=== PATIENT | female | born 1955 | race Caucasian/White ===

== ENCOUNTER 2022-10-09 17:17 | Observation (INO) ==
--- NOTE | 2022-10-09 17:22 | Emergency Department Note ---
Impression & Plan Syncope, Acute dehydration ED Provider Note NAME: MACIEJ RICE AGE: 67 SEX: F : 1955 ARRIVES VIA: Ambulance INFORMANT: Patient, ED PROVIDER(S): Marvel Cary MD CHIEF COMPLAINT: Syncope MEDICAL DECISION MAKING: Patient presents due to concern for syncope that occurred after the [employer] race. IV was established blood work was obtained the patient was ordered IV fluids. CK was also ordered. The patient's blood work showed a normal white count H&H and platelet count. The patient does have RASHARD with a creat of 169. I was able to review prior blood work which showed that her creatinine was less than 1. Patient's initial troponin is 19 given the patient's history of cardiomyopathy believe this warrants being repeated. Discussed that if it was uptrending would consider admission. The patient had received IV fluids and was given additional. Repeat troponin was 23. I did discuss this further with on-call yard supervisor Dr. Moreno. Patient currently asymptomatic. I did discuss the patient may be nefit for a repeat echo to ensure stability given her slightly below normal EF as reported by patient. Patient was admitted to the medicine service by Dr. Wong. Prior /Outside records reviewed: I did review an outside echo report which shows that the patient had slightly below normal ejection fraction at 43%. This was via her [facility] patient portal. Patient also had reported known history of left bundle branch block. Differential diagnosis: Vasovagal event, dehydration, infection, hypoglycemia, electrolyte abnormalities, cardiac sources, intracerebral event, pulmonary embolism, seizure, toxicologic, neurologic, as well as other pathologies. Diagnostics, as interpreted by me: ECG: Normal sinus rhythm, rate posterior COVID old VT, wide QRS, left bundle branch block pattern, trace elevation anteriorly and laterally without obvious Sgarbossa criteria. Cardiac monitoring: An order was placed for continuous cardiac monitoring. The monitor shows a rate of 77 with sinus rhythm. Patient was placed on pulse oximetry Medical decision rules: Sgarbossa criteria Imaging studies: See below I informally reviewed the patient's chest x-ray which shows no obvious pneumotho rax HPI: Patient presents due to concern for syncope that occurred just prior to arrival. The patient did receive 500 IV fluids and the patient is feeling better. The patient did feel lightheaded and dizzy prior to this occurrence. The patient had just completed the [employer]. Patient states that she does have a history of cardiomyopathy with an EF of 42%. Patient states she recently did have an echocardiogram completed at [facility] about 3 months prior. Patient denies any chest pains or shortness of breath. No nausea vomiting or diarrhea. The patient had felt chilled prior to coming in as she was running in the rain completing the race. Patient states that she passed out when she was seated the patient did not fall. PAST MEDICAL HISTORY: Cardiomyopathy HTN PAST SURGICAL HISTORY: No pertinent surgical history SOCIAL HISTORY: No tobacco or drug use, uses alcohol socially. Lives in [place]. HOME MEDICATIONS: See Below ALLERGIES: See Below VITALS: See Below PHYSICAL EXAMINATION: GENERAL: NAD, non-toxic. EYE EXAM: Normal conjunctiva. PERRL, no anisocoria and EOM's grossly intact w/o pain. NECK: Supple, no nuchal rigidity, no adenopathy, non-tender. No signs of meningismus. FROM of the neck with good chin to chest and neck extension. No stridor. LUNGS: Clear to auscultation. Normal chest wall mechanics. HEART: NSR, no MRG. ABDOMEN: Abdomen soft, non-tender, no masses, no rebound or guarding. BACK: No CVA TTP. SKIN: No rashes and no bruising. UPPER EXTREMITIES: Upper extremities are grossly normal. LOWER EXTREMITIES: Grossly normal, no edema. NEURO EXAM: A&O x3, cranial nerves II-XII grossly intact, normal speech, moves all 4 extremities. Past Med/Surg History Medical History Cardiomyopathy Surgical History No pertinent past surgical history Social History Smoking Status: Never smoker Do You Dip or Chew Tobacco: No; Tobacco Cessation Education Requested by Patient: No Hx Alcohol Use: Yes Hx Substance Use: No Preferred Language: Kinyarwanda Communication Ability: Effective Professional Nursing Tutor Required: No Beliefs That Will Affect Care: None Current Living Situation: Spouse Other Information That Helps Us Care for You: No Feels Safe at Home: Yes Assistive Devices: None Allergies Allergies Allergy/AdvReac Type Severity Reaction Status Date / Time No Known Allergies Allergy Unverified 10/09/22 19:01 Home Meds Home Medications Medication Instructions Recorded Confirmed losartan 50 mg tablet 50 mg PO DAILY 10/09/22 10/09/22 metoprolol succinate 25 mg 25 mg PO DAILY 10/09/22 10/09/22 tablet,extended release 24 hr spironolactone 25 mg tablet 25 mg PO DAILY 10/09/22 10/09/22 Results & Data (ED) Vital Signs Vital Signs - 24 hr 10/09/22 17:28 10/09/22 17:22 10/09/22 17:41 Temperature 36.5 C Temperature Source Oral Pulse Rate 87 75 75 Respiratory Rate 20 20 Blood Pressure 128/81 Blood Pressure Mean 96 Blood Pressure Position Lying Pulse Oximetry 99 99 Oxygen Delivery Method Room Air Room Air Sepsis Recent Fever Within 48 Hours No Sepsis New/Unexplained Change in Mental Status No Sepsis Action Taken by Nursing No Action Required Home Medications Current Medication List: was personally reviewed by me Laboratory Data Attestation: I reviewed the patient's lab results. 10/10/22 04:29 10/10/22 04:29 Lab Results 10/09/22 10/09/22 10/09/22 Range/Units 17:48 17:48 17:48 WBC 10.69 (4.8-10.8) K/ul RBC 4.70 (4.20-5.40) M/uL Hgb 13.9 (12.0-16.0) g/dl Hct 41.5 (37.0-47.0) % MCV 88.3 (80.0-100.0) fL MCH 29.6 (25.0-34.0) pg MCHC 33.5 (32.0-36.0) g/dL RDW Std Deviation 41.2 (36.4-46.3) fL RDW Coeff of Rui 12.8 (11.5-14.5) % Plt Count 295 (130-400) K/uL MPV 9.5 (9.4-12.4) fL Immature Gran % (Auto) 0.4 % Neut % (Auto) 81.9 % Lymph % (Auto) 11.3 % Dillon % (Auto) 5.5 % Eos % (Auto) 0.5 % Baso % (Auto) 0.4 % Neut # (Auto) 8.76 H (1.40-6.50) K/uL Lymph # (Auto) 1.21 (1.2-3.4) K/uL Dillon # (Auto) 0.59 (0.11-0.59) K/uL Eos # (Auto) 0.05 (0-0.50) K/uL Baso # (Auto) 0.04 (0-0.2) K/uL Immature Gran # (Auto) 0.04 (0.01-0.20) K/uL APTT (21.0-31.0) Seconds PTT Ratio Sodium 139 (136-145) mmol/L Potassium 5.2 H (3.5-5.1) mmol/L Chloride 106 (98-107) mmol/L Carbon Dioxide 23 (21-32) mmol/L Anion Gap 10 (3-11) BUN 26 H (6-23) mg/dl Creatinine 1.69 H (0.6-1.2) mg/dl Est Cr Clr Drug Dosing 26.8 ml/min Est GFR ( Amer) 35.8 ml/min Est GFR (Non-Af Amer) 30.9 ml/min BUN/Creatinine Ratio 15.4 (10-20) Glucose 104 H (70-99(Fasting)) mg/dl Calcium 10.1 (8.6-10.3) mg/dl Magnesium 2.0 (1.7-2.4) mg/dl Total Bilirubin 1.0 (0.2-1.0) mg/dl AST 24 (13-39) U/L ALT 22 (7-52) U/L Alkaline Phosphatase 82 (34-104) U/L Total Creatine Kinase 183 (26-192) U/L Troponin I High Sens 19.3 H (0-14) pg/ml Total Protein 7.0 (6.0-8.3) gm/dl Albumin 4.6 (3.4-5.0) gm/dl Globulin 2.4 L (2.5-4.0) gm/dl Albumin/Globulin Ratio 1.9 (0.9-2) TSH 1.976 (0.300-4.500) uIu/ml 10/09/22 10/09/22 Range/Units 17:48 19:29 WBC (4.8-10.8) K/ul RBC (4.20-5.40) M/uL Hgb (12.0-16.0) g/dl Hct (37.0-47.0) % MCV (80.0-100.0) fL MCH (25.0-34.0) pg MCHC (32.0-36.0) g/dL RDW Std Deviation (36.4-46.3) fL RDW Coeff of Rui (11.5-14.5) % Plt Count (130-400) K/uL MPV (9.4-12.4) fL Immature Gran % (Auto) % Neut % (Auto) % Lymph % (Auto) % Dillon % (Auto) % Eos % (Auto) % Baso % (Auto) % Neut # (Auto) (1.40-6.50) K/uL Lymph # (Auto) (1.2-3.4) K/uL Dillon # (Auto) (0.11-0.59) K/uL Eos # (Auto) (0-0.50) K/uL Baso # (Auto) (0-0.2) K/uL Immature Gran # (Auto) (0.01-0.20) K/uL APTT 20.5 L (21.0-31.0) Seconds PTT Ratio 0.7 Sodium (136-145) mmol/L Potassium (3.5-5.1) mmol/L Chloride (98-107) mmol/L Carbon Dioxide (21-32) mmol/L Anion Gap (3-11) BUN (6-23) mg/dl Creatinine (0.6-1.2) mg/dl Est Cr Clr Drug Dosing ml/min Est GFR ( Amer) ml/min Est GFR (Non-Af Amer) ml/min BUN/Creatinine Ratio (10-20) Glucose (70-99(Fasting)) mg/dl Calcium (8.6-10.3) mg/dl Magnesium (1.7-2.4) mg/dl Total Bilirubin (0.2-1.0) mg/dl AST (13-39) U/L ALT (7-52) U/L Alkaline Phosphatase (34-104) U/L Total Creatine Kinase 290 H (26-192) U/L Troponin I High Sens 23.7 H (0-14) pg/ml Total Protein (6.0-8.3) gm/dl Albumin (3.4-5.0) gm/dl Globulin (2.5-4.0) gm/dl Albumin/Globulin Ratio (0.9-2) TSH (0.300-4.500) uIu/ml Administered Medications Discontinued Medications Heparin Sodium (Porcine) (Heparin Sod 5,000 Unit/0.5 Ml Vial) 5,000 units SQ Q8 LYNSEY Stop: 11/09/22 00:53 Last Admin: 10/10/22 08:24 Dose: Not Given Documented By: Admin: 10/10/22 05:33 Dose: Not Given Documented By: Admin: 10/10/22 01:23 Dose: Not Given Documented By: GISSELL Sodium Chloride (Nss 1000ml) 1,000 mls @ 999 mls/hr IV .Q1H1M LYNSEY Stop: 10/09/22 18:45 Last Infusion: 10/09/22 19:04 Dose: 0 mls/hr Documented By: Admin: 10/09/22 17:54 Dose: 999 mls/hr Documented By: QGV Sodium Chloride (Nss 1000ml) 1,000 mls @ 999 mls/hr IV .Q1H1M ONE Stop: 10/09/22 19:33 Last Infusion: 10/09/22 21:37 Dose: 0 mls/hr Documented By: JULIO CESAR Admin: 10/09/22 19:03 Dose: 999 mls/hr Documented By: QGV Sodium Chloride (Nss 1000ml) 1,000 mls @ 60 mls/hr IV .[id number] STA Stop: 10/10/22 14:47 Last Infusion: 10/10/22 12:50 Dose: 0 mls/hr Documented By: Admin: 10/09/22 22:32 Dose: 60 mls/hr Documented By: JULIO CESAR Metoprolol Succinate (Metoprolol Succ 25mg Ext Rel Tab) 25 mg PO DAILY LYNSEY Stop: 11/09/22 08:59 Last Admin: 10/10/22 08:31 Dose: 25 mg Documented By: JAZIEL Imaging Data Radiologist's Impression: Chest X-Ray 10/09/22 20:45 SINGLE VIEW CHEST CLINICAL HISTORY: Renal failure. FINDINGS: An AP, portable, upright chest radiograph is obtained. No prior studies are available for comparison at the time of dictation. The heart is mildly enlarged. The pulmonary vasculature is noncongested. Chronic interstitial thickening is similar to previous. The lungs and pleural spaces are clear noting bibasilar scarring/atelectasis. No pneumothorax is seen. The skeletal structures are osteopenic. Bony thorax is grossly intact. IMPRESSION: No active disease in the chest. ACT 112: Negative or not required by law. Electronically signed by: Anselmo Dubon M.D. 10/09/2022 10:26 PM Discharge Plan Visit Data Chief Complaint: Syncope Stated Complaint: SYNCOPE, LETHARGIC ED Provider: Marvel Cary Discharge Problem: Syncope, Acute dehydration Patient Disposition: Admitted As Inpatient Discharge Instructions Interventions: ED Discharge Assessment Last Done: 10/10/22 00:48
[2022-10-09] MEDS ORDERED: SODIUM CHLORIDE 0.9% 1000ML 1,000 ML IV SCH (17:45)
[2022-10-09 18:08] LABS: Basophils # (auto) 0.04 K/uL (0-0.2); Basophils % (auto) 0.4 %; Eosinophils # (auto) 0.05 K/uL (0-0.50); Eosinophils % (auto) 0.5 %; Hematocrit (blood only) 41.5 % (37.0-47.0); Hemoglobin 13.9 g/dl (12.0-16.0); Immature Granulocytes # (auto) 0.04 K/uL (0.01-0.20); Immature Granulocytes % (auto) 0.4 %; Lymphocytes # (auto) 1.21 K/uL (1.2-3.4); Lymphocytes % (auto) 11.3 %; Mean Corpuscular Hemoglobin 29.6 pg (25.0-34.0); Mean Corpuscular Hgb Conc 33.5 g/dL (32.0-36.0); Mean Corpuscular Volume 88.3 fL (80.0-100.0); Mean Platelet Volume 9.5 fL (9.4-12.4); Monocytes # (auto) 0.59 K/uL (0.11-0.59); Monocytes % (auto) 5.5 %; Neutrophils # (auto) 8.76 K/uL (1.40-6.50); Neutrophils % (auto) 81.9 %; Platelet Count 295 K/uL (130-400); RDW Coefficient of Variation 12.8 % (11.5-14.5); RDW Standard Deviation 41.2 fL (36.4-46.3); White Blood Count 10.69 K/ul (4.8-10.8)
[2022-10-09 18:21] LABS: Albumin Globulin Ratio 1.9 (0.9-2); Albumin Level 4.6 gm/dl (3.4-5.0); BUN Creatinine Ratio 15.4 (10-20); Calcium 10.1 mg/dl (8.6-10.3); Creatinine Clr Calc Pharmacy 26.8 ml/min; Est GFR (African American) 35.8 ml/min; Est GFR (Non-African American) 30.9 ml/min; Globulin 2.4 gm/dl (2.5-4.0); Potassium 5.2 mmol/L (3.5-5.1)
[2022-10-09 18:28] LABS: Troponin I High Sensitivity 19.3 pg/ml (0-14)
[2022-10-09] MEDS ORDERED: SODIUM CHLORIDE 0.9% 1000ML 1,000 ML IV ONE (18:33)
[2022-10-09 20:01] LABS: Troponin I High Sensitivity 23.7 pg/ml (0-14)
[2022-10-09 21:15] LABS: Partial Thromboplastin Ratio 0.7; Partial Thromboplastin Time 20.5 Seconds (21.0-31.0)
--- NOTE | 2022-10-09 22:00 | History & Physical Report ---
Date of Service October 09, 2022 Assessment & Plan (1) Syncope: Plan: Likely secondary to orthostasis ARF, hyperkalemia, mild rhabdomyolysis from exertion, NSAID intake Rule out arrhythmia, valvular pathology Troponin elevation secondary to kidney dysfunction Patient without chest pain or SOB complaints. History of cardiomyopathy, patient on the dry side LBBB, possibly chronic OBS PCU given cardiac history Check orthostatic vitals, TTE Monitor creatinine, CPK response to IVF Appropriate to hold losartan and spironolactone given kidney dysfunction and hyperkalemia Renal ultrasound, Nephrology consult if without improvement Patient counseled regarding adverse effects of NSAIDs on kidney function. DVT prophylaxis. Heparin subcu Full code Patient requesting updates providers. Mr. Arsalan Israel, contact #[phone]. Text document was generated using Phone Warrior voice recognition software. It may contain grammatical or spelling errors. Kindly contact undersigned for clarification of any documentation item in question. History of Present Illness Chief Complaint: Syncope Primary Care Provider: Dr. Sebastian of [place], [place] History obtained from patient, family, and records. Medical history significant for cardiomyopathy possibly from COVID-19 illness as per patient (EF 40%, TTE 2022), hypertension. Patient is a resident of [place], [place] who is in town for the local [employer] triathlon. Patient felt lightheaded and dizzy after completing the race this afternoon. Patient sat down in a chair and passed out. Transient syncopal event witnessed by friends/family. Patient denies chest pain, SOB, headache, abdominal pain. No witnessed seizures, tongue biting, or incontinence. Aleve intake for aches. Patient brought to the ER for evaluation. Currently feels much better. 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 Allergies Allergy/AdvReac Type Severity Reaction Status Date / Time No Known Allergies Allergy Unverified 10/09/22 19:01 Home Medications Medication Instructions Recorded Confirmed Type losartan 50 mg tablet 50 mg PO DAILY 10/09/22 10/09/22 History metoprolol succinate 25 mg 25 mg PO DAILY 10/09/22 10/09/22 History tablet,extended release 24 hr spironolactone 25 mg tablet 25 mg PO DAILY 10/09/22 10/09/22 History Past Med/Surg History Social History Smoking Status: Never smoker Do You Dip or Chew Tobacco: No; Tobacco Cessation Education Requested by Patient: No Hx Alcohol Use: Yes Hx Substance Use: No Preferred Language: Bruneian Communication Ability: Effective Hot Dip Tinning Supervisor Required: No Beliefs That Will Affect Care: None Current Living Situation: Spouse Other Information That Helps Us Care for You: No Feels Safe at Home: Yes Review of Systems Review of Systems: As per HPI, all other systems reviewed and negative Physical Exam Physical Exam: GENERAL: Comfortable, pleasant, no respiratory distress SKIN: Normal color, warm HEENT: [place] palpebral conjunctivae, no ptosis, dry buccal mucosa NECK : Supple, no tenderness CHEST : CTA, no tenderness HEART : RRR, no obvious murmurs ABDOMEN: no distention, nontender EXTREMITIES : No LE swelling/tenderness, no other conspicuous deformities noted NEUROLOGIC : Coherent, no facial asymmetry, no other gross focality Results & Data Results & Data Vital Signs (Past 12 Hours) Vital Signs Temp Pulse Resp BP Pulse Ox O2 Del Method 10/09/22 19:50 85 26 H 96 Room Air 10/09/22 19:40 82 20 98 10/09/22 19:30 92 H 16 98 10/09/22 19:20 88 22 97 10/09/22 19:10 91 H 22 97 10/09/22 19:00 89 15 97 10/09/22 18:50 87 25 H 98 10/09/22 18:40 101 H 21 97 10/09/22 18:30 91 H 16 100 10/09/22 18:20 83 23 99 10/09/22 18:10 87 20 95 10/09/22 18:00 84 22 99 Room Air 10/09/22 17:50 80 18 98 10/09/22 17:40 90 17 97 10/09/22 17:30 75 20 99 10/09/22 17:27 79 18 99 10/09/22 17:19 99 Room Air 10/09/22 17:41 75 20 99 Room Air 10/09/22 17:22 36.5 C 75 20 128/81 99 Room Air 10/09/22 17:28 87 Laboratory Results Laboratory Results WBC 10.69 K/ul (4.8-10.8) 10/09/22 17:48 RBC 4.70 M/uL (4.20-5.40) 10/09/22 17:48 Hgb 13.9 g/dl (12.0-16.0) 10/09/22 17:48 Hct 41.5 % (37.0-47.0) 10/09/22 17:48 MCV 88.3 fL (80.0-100.0) 10/09/22 17:48 MCH 29.6 pg (25.0-34.0) 10/09/22 17:48 MCHC 33.5 g/dL (32.0-36.0) 10/09/22 17:48 RDW Std Deviation 41.2 fL (36.4-46.3) 10/09/22 17:48 RDW Coeff of Rui 12.8 % (11.5-14.5) 10/09/22 17:48 Plt Count 295 K/uL (130-400) 10/09/22 17:48 MPV 9.5 fL (9.4-12.4) 10/09/22 17:48 Immature Gran % (Auto) 0.4 % 10/09/22 17:48 Neut % (Auto) 81.9 % 10/09/22 17:48 Lymph % (Auto) 11.3 % 10/09/22 17:48 Wolfe % (Auto) 5.5 % 10/09/22 17:48 Eos % (Auto) 0.5 % 10/09/22 17:48 Baso % (Auto) 0.4 % 10/09/22 17:48 Neut # (Auto) 8.76 K/uL (1.40-6.50) H 10/09/22 17:48 Lymph # (Auto) 1.21 K/uL (1.2-3.4) 10/09/22 17:48 Wolfe # (Auto) 0.59 K/uL (0.11-0.59) 10/09/22 17:48 Eos # (Auto) 0.05 K/uL (0-0.50) 10/09/22 17:48 Baso # (Auto) 0.04 K/uL (0-0.2) 10/09/22 17:48 Immature Gran # (Auto) 0.04 K/uL (0.01-0.20) 10/09/22 17:48 APTT 20.5 Seconds (21.0-31.0) L 10/09/22 17:48 PTT Ratio 0.7 10/09/22 17:48 Sodium 139 mmol/L (136-145) 10/09/22 17:48 Potassium 5.2 mmol/L (3.5-5.1) H 10/09/22 17:48 Chloride 106 mmol/L (98-107) 10/09/22 17:48 Carbon Dioxide 23 mmol/L (21-32) 10/09/22 17:48 Anion Gap 10 (3-11) 10/09/22 17:48 BUN 26 mg/dl (6-23) H 10/09/22 17:48 Creatinine 1.69 mg/dl (0.6-1.2) H 10/09/22 17:48 Est Cr Clr Drug Dosing 26.8 ml/min 10/09/22 17:48 Est GFR ( Amer) 35.8 ml/min 10/09/22 17:48 Est GFR (Non-Af Amer) 30.9 ml/min 10/09/22 17:48 BUN/Creatinine Ratio 15.4 (10-20) 10/09/22 17:48 Glucose 104 mg/dl (70-99(Fasting)) H 10/09/22 17:48 Calcium 10.1 mg/dl (8.6-10.3) 10/09/22 17:48 Magnesium 2.0 mg/dl (1.7-2.4) 10/09/22 17:48 Total Bilirubin 1.0 mg/dl (0.2-1.0) 10/09/22 17:48 AST 24 U/L (13-39) 10/09/22 17:48 ALT 22 U/L (7-52) 10/09/22 17:48 Alkaline Phosphatase 82 U/L (34-104) 10/09/22 17:48 Total Creatine Kinase 290 U/L (26-192) H 10/09/22 19:29 Troponin I High Sens 23.7 pg/ml (0-14) H 10/09/22 19:29 Total Protein 7.0 gm/dl (6.0-8.3) 10/09/22 17:48 Albumin 4.6 gm/dl (3.4-5.0) 10/09/22 17:48 Globulin 2.4 gm/dl (2.5-4.0) L 10/09/22 17:48 Albumin/Globulin Ratio 1.9 (0.9-2) 10/09/22 17:48 TSH 1.976 uIu/ml (0.300-4.500) 10/09/22 17:48 Diagnostic Findings Chest x-ray as per my interpretation cardiomegaly EKG as per my interpretation :Rate 80, NSR, LAD, LAFB, LBBB
[2022-10-09] MEDS ORDERED: traMADol HCL 50 MG TABLET PO PRN (22:03)
[2022-10-09] MEDS ORDERED: PROMETHAZINE HCL 6.25 MG in SODIUM CHLORIDE 0.9% 50 ML IV PRN (22:03)
[2022-10-09] MEDS ORDERED: SODIUM CHLORIDE 0.9% 1000ML 1,000 ML IV STA (22:08)
--- NOTE | 2022-10-09 22:27 | XRay Report ---
SINGLE VIEW CHEST CLINICAL HISTORY: Renal failure. FINDINGS: An AP, portable, upright chest radiograph is obtained. No prior studies are available for c omparison at the time of dictation. The heart is mildly enlarged. The pulmonary vasculature is noncon gested. Chronic interstitial thickening is similar to previous. The lungs and pleural spaces are feli r noting bibasilar scarring/atelectasis. No pneumothorax is seen. The skeletal structures are osteope ashok. Bony thorax is grossly intact. IMPRESSION: No active disease in the chest. ACT 112: Negative or not required by law. Electronically signed by: Anselmo Dubon M.D. 10/09/2022 10:26 PM
[2022-10-09 23:28] LABS: BUN Creatinine Ratio 17.2 (10-20); Calcium 8.6 mg/dl (8.6-10.3); Creatinine Clr Calc Pharmacy 37.1 ml/min; Est GFR (African American) 53.1 ml/min; Est GFR (Non-African American) 45.8 ml/min; Potassium 4.7 mmol/L (3.5-5.1)
[2022-10-09 23:51] LABS: Troponin I High Sensitivity 17.9 pg/ml (0-14)
[2022-10-10] MEDS: HEPARIN SOD 5,000 UNIT/0.5 ML VIAL SQ SCH ×3 (01:23→08:24)
[2022-10-10 05:24] LABS: Basophils # (auto) 0.03 K/uL (0-0.2); Basophils % (auto) 0.4 %; Eosinophils # (auto) 0.12 K/uL (0-0.50); Eosinophils % (auto) 1.6 %; Hematocrit (blood only) 34.8 % (37.0-47.0); Hemoglobin 11.7 g/dl (12.0-16.0); Immature Granulocytes # (auto) 0.03 K/uL (0.01-0.20); Immature Granulocytes % (auto) 0.4 %; Lymphocytes # (auto) 1.87 K/uL (1.2-3.4); Lymphocytes % (auto) 24.6 %; Mean Corpuscular Hemoglobin 29.6 pg (25.0-34.0); Mean Corpuscular Hgb Conc 33.6 g/dL (32.0-36.0); Mean Corpuscular Volume 88.1 fL (80.0-100.0); Mean Platelet Volume 9.8 fL (9.4-12.4); Monocytes % (auto) 7.9 %; Neutrophils # (auto) 4.95 K/uL (1.40-6.50); Neutrophils % (auto) 65.1 %; Platelet Count 222 K/uL (130-400); RDW Coefficient of Variation 12.8 % (11.5-14.5); RDW Standard Deviation 41.4 fL (36.4-46.3); Red Blood Count 3.95 M/uL (4.20-5.40)
[2022-10-10 05:41] LABS: BUN Creatinine Ratio 25.9 (10-20); Calcium 8.2 mg/dl (8.6-10.3); Creatinine Clr Calc Pharmacy 48.5 ml/min; Est GFR (African American) 82.2 ml/min; Est GFR (Non-African American) 70.9 ml/min; Potassium 3.7 mmol/L (3.5-5.1)
[2022-10-10] MEDS ORDERED: METOPROLOL SUCC 25MG EXT REL TAB PO SCH (09:00)
--- NOTE | 2022-10-10 10:18 | Hospitalist Progress Note ---
Date of Service October 10, 2022 Assessment & Plan (1) Syncope: Plan: Likely secondary to heat exhaustion, dehydration History of cardiomyopathy --No focal neurologic symptoms No confusion or syncopal episode No generalized involuntary movements observed during this episode -- Chest x-ray: No pneumonia Creatinine on admission mildly increased, 1.20 CPK 290, 759 Troponin 19, 23, 17 --EKG: Sinus rhythm, LBBB-chronic as per patient Echocardiogram: Normal left ventricular wall thickness, left ventricular systolic function is mildly reduced, EF 40- 45%, mild aortic regurgitation, grade 1 diastolic dysfunction -- Patient reports her last ejection fraction was 42% 3 months ago --Patient clinically improved Denies symptoms Creatinine improved to 0.8 --Strongly advised to drink plenty of fluids, take plenty of rest Advised to hold losartan and spironolactone until tomorrow Advised not to take NSAIDs Follow-up with PCP this coming week plan of care discussed with patient and her Bill in detail and at length all questions answered They are understanding, agreeable, comfortable with the plan of care Admission and Anticipated Discharge Date Admission Date: October 09, 2022 Subjective Follow-up for syncopal episode, etc. Seen sitting up in bed, comfortable, awake and alert, in good spirits Patient's Bill at the bedside visiting States she feels much better overall States she is back to her baseline Denies presyncope, syncopal episode while admitted No dizziness, headache, chest pain, shortness of breath, palpitations, nausea vomiting, abdominal pain, problems with urination Ambulating to the bathroom in the room with no problems States she is ready for discharge Review of Systems Review of Systems: all noted and negative except for above Physical Exam Physical Exam: General- oriented x 3, not in distress, speaks in sentences with no effort or accessory muscle use Head- atraumatic Eyes- PERRL, EOMI, anicteric ENT- oropharynx clear Neck- supple, no JVD, no adenopathy, no thyromegaly; carotids +2/2, no bruits appreciated Lungs- clear to auscultation bilaterally, no rales/wheezes Heart- normal rate, regular rhythm; no murmur, no gallop, no rub appreciated Abdomen- normal bowel sounds, nondistended, soft, nontender, no masses or hepatosplenomegaly Extremities- no pretibial edema, no calf tenderness; peripheral pulses intact Neuro- alert, oriented x 3; CN 2-12 grossly intact; motor 5/5 bilaterally;sensation 100% on all extremities; no other gross focal neurologic deficits Skin- warm & dry Results & Data Results & Data Vital Signs (Past 12 Hours) Vital Signs Temp Pulse Pulse Resp BP BP Pulse Ox 10/10/22 08:20 36.5 C 73 16 121/74 99 10/10/22 03:19 36.5 C 56 L 17 105/57 L 98 10/10/22 01:05 36.5 C 62 16 131/77 96 10/10/22 00:48 36.7 C 72 16 114/76 98 10/09/22 22:30 91 H 24 97 O2 Del Method 10/10/22 08:20 Room Air 10/10/22 03:19 Room Air 10/10/22 01:05 Room Air 10/10/22 00:48 Room Air 10/09/22 22:30 Room Air all noted and reviewed including below
--- NOTE | 2022-10-10 19:08 | Discharge Summary ---
Discharge Summary Date of Service October 10, 2022 Notes For Next Care Provider Medication Changes From Visit Hold losartan and spironolactone, resume Wednesday, October 12, 2022 Admission HPI Per Admitting Provider History obtained from patient, family, and records. Medical history significant for cardiomyopathy possibly from COVID-19 illness as per patient (EF 40%, TTE 2022), hypertension. Patient is a resident of [place], [place] who is in town for the local [employer] triath[employer]. Patient felt lightheaded and dizzy after completing the race this afternoon. Patient sat down in a chair and passed out. Transient syncopal event witnessed by friends/family. Patient denies chest pain, SOB, headache, abdominal pain. No witnessed seizures, tongue biting, or incontinence. Aleve intake for aches. Patient brought to the ER for evaluation. Currently feels much better. 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 Admission Exam Per Admitting Provider GENERAL: Comfortable, pleasant, no respiratory distress SKIN: Normal color, warm HEENT: [place] palpebral conjunctivae, no ptosis, dry buccal mucosa NECK : Supple, no tenderness CHEST : CTA, no tenderness HEART : RRR, no obvious murmurs ABDOMEN: no distention, nontender EXTREMITIES : No LE swelling/tenderness, no other conspicuous deformities noted NEUROLOGIC : Coherent, no facial asymmetry, no other gross focality Principal Dx & Hospital Course #1 = Principal Diagnosis (1) Syncope: Likely secondary to heat exhaustion, dehydration History of cardiomyopathy --No focal neurologic symptoms No confusion or syncopal episode No generalized involuntary movements observed during this episode -- Chest x-ray: No pneumonia Creatinine on admission mildly increased, 1.20 CPK 290, 759 Troponin 19, 23, 17 --EKG: Sinus rhythm, LBBB-chronic as per patient Echocardiogram: Normal left ventricular wall thickness, left ventricular systolic function is mildly reduced, EF 40- 45%, mild aortic regurgitation, grade 1 diastolic dysfunction -- Patient reports her last ejection fraction was 42% 3 months ago --Patient clinically improved Denies symptoms Creatinine improved to 0.8 --Strongly advised to drink plenty of fluids, take plenty of rest Advised to hold losartan and spironolactone until tomorrow Advised not to take NSAIDs Follow-up with PCP this coming week plan of care discussed with patient and her Bill in detail and at length all questions answered They are understanding, agreeable, comfortable with the plan of care Discharge Exam General- oriented x 3, not in distress, speaks in sentences with no effort or accessory muscle use Head- atraumatic Eyes- PERRL, EOMI, anicteric ENT- oropharynx clear Neck- supple, no JVD, no adenopathy, no thyromegaly; carotids +2/2, no bruits appreciated Lungs- clear to auscultation bilaterally, no rales/wheezes Heart- normal rate, regular rhythm; no murmur, no gallop, no rub appreciated Abdomen- normal bowel sounds, nondistended, soft, nontender, no masses or hepatosplenomegaly Extremities- no pretibial edema, no calf tenderness; peripheral pulses intact Neuro- alert, oriented x 3; CN 2-12 grossly intact; motor 5/5 bilaterally;sensation 100% on all extremities; no other gross focal neurologic deficits Skin- warm & dry Updated Medication List Medication Instructions Recorded Confirmed Type losartan 50 mg tablet 50 mg PO DAILY 10/09/22 10/09/22 History metoprolol succinate 25 mg 25 mg PO DAILY 10/09/22 10/09/22 History tablet,extended release 24 hr spironolactone 25 mg tablet 25 mg PO DAILY 10/09/22 10/09/22 History Hospital Stay Data Consultations 10/09/22 20:35 ED Decision to Admit Stat Procedures Performed SINGLE VIEW CHEST CLINICAL HISTORY: Renal failure. FINDINGS: An AP, portable, upright chest radiograph is obtained. No prior studies are available for comparison at the time of dictation. The heart is mildly enlarged. The pulmonary vasculature is noncongested. Chronic interstitial thickening is similar to previous. The lungs and pleural spaces are clear noting bibasilar scarring/atelectasis. No pneumothorax is seen. The skeletal structures are osteopenic. Bony thorax is grossly intact. IMPRESSION: No active disease in the chest. ACT 112: Negative or not required by law. Electronically signed by: Anselmo Dubon M.D. 10/09/2022 10:26 PM Pending Results Patient Have Any Pending Studies at Discharge: No Discharge Instructions Given to Patient (Per Discharging Provider) PLEASE HOLD LOSARTAN AND SPIRONOLACTONE TODAY AND TOMORROW. RESUME THESE MEDICATIONS ON WEDNESDAY OCTOBER 12, 2022. DRINK PLENTY OF WATER AND ALSO GET LOTS OF REST. DO NOT TAKE NSAIDS INCLUDING ADVIL, NAPROXEN, ETC. PLEASE CALL YOUR PRIMARY CARE PHYSICIAN OR RETURN TO THE ER IF WITH WORSENING OF SYMPTOMS, INCLUDING DIZZINESS, WEAKNESS, NAUSEA/VOMITING, FEVER/CHILLS, CHANGES WITH URINATION, ETC. FOLLOW UP WITH PRIMARY CARE PHYSICIAN IN 1 WEEK. Total Time Total Time Spent Total Time Spent (In Minutes): >30 minutes
--- NOTE | 2022-10-12 17:10 | Electrocardiogram Report ---
Test Reason : Blood Pressure : / mmHG Vent. Rate : 082 BPM Atrial Rate : 082 BPM P-R Int : 154 ms QRS Dur : 134 ms QT Int : 408 ms P-R-T Axes : 053 -16 066 degrees QTc Int : 476 ms Normal sinus rhythm Left bundle branch block Abnormal ECG No previous ECGs available Confirmed by Rasheed Moreno ([id number]) on 10/12/2022 5:09:45 PM Referred By: REFERRED SELF Confirmed By:Rasheed Moreno
--- NOTE | 2022-10-12 23:02 | Electrocardiogram Report ---
Test Reason : Blood Pressure : / mmHG Vent. Rate : 071 BPM Atrial Rate : 071 BPM P-R Int : 184 ms QRS Dur : 134 ms QT Int : 426 ms P-R-T Axes : 021 -30 -62 degrees QTc Int : 462 ms Normal sinus rhythm Left axis deviation Left bundle branch block Abnormal ECG When compared with ECG of 09-OCT-2022 17:26, T wave inversion now evident in Inferior leads Confirmed by Rasheed Moreno ([id number]) on 10/12/2022 11:02:39 PM Referred By: REFERRED SELF Confirmed By:Rasheed Moreno
== END 2022-10-10 14:45 | disposition home or self-care (01) ==
LOC: 4W 17:17 → ED 17:17 → 4W 10-10 00:48